=== PATIENT | male | born 1970 | race Two or more races ===

== ENCOUNTER 2020-09-13 18:32 | Emergency (ER) | payer OTHER ==
[~2020-09-13] VITALS: Ht 180.3 cm; Wt 84.8 kg
--- NOTE | 2020-09-13 18:38 | NUR ---
BIBSELF, C/O COUGH, SOB AND CHEST PAIN X2 DAYS, INHALER INEFFECTIVE, TO ER BED 8, PATIENT NOTED TRIPODING, HOOKED TO O2 VIA NC AT 6LPM, IV LINE ESTABLISHED AT RAC 20G. DR EDWARDS AT BEDSIDE
--- NOTE | 2020-09-13 18:40 | NUR ---
RECEIVED VERBAL ORDER OF SOLU-MEDROL 125MG IVP AND EPINEPHRINE 0.3MG SUBCUTANEOUS. CARRIED OUT
[2020-09-13] MEDS ORDERED: methylPREDNISolone SOD SUCC 125 MG/2ML VIAL ONE (18:41)
[2020-09-13] MEDS ORDERED: EPINEPHRINE (1:1000) 1 MG/ML AMPUL ONE (18:43)
[2020-09-13] MEDS ORDERED: Magnesium 1GM/D5W 100ML PREMIX 200 ML IV ONE ×2 (18:43→19:00)
--- NOTE | 2020-09-13 18:51 | NUR ---
BIPIN CRANE AT BEDSIDE FOR EKG
[2020-09-13] MEDS ORDERED: IPRATROPIUM NEB FS 0.5 MG/2.5 ML AMPUL.NEB NEB ONE (19:00)
[2020-09-13] MEDS ORDERED: EPINEPHRINE (1:1000) 1 MG/ML AMPUL SUBCUT ONE (19:00)
[2020-09-13] MEDS ORDERED: IV NS 0.9% 1,000 ML BAG IV ONE (19:00)
[2020-09-13] MEDS ORDERED: ALBUTEROL FS 2.5 MG/3 ML VIAL.NEB CONTNEB ONE (19:00)
[2020-09-13] MEDS ORDERED: methylPREDNISolone SOD SUCC 125 MG/2ML VIAL IV ONE (19:00)
[2020-09-13] MEDS ORDERED: ALBUTEROL FS 2.5 MG/3 ML VIAL.NEB ONE (19:03)
[2020-09-13] MEDS ORDERED: IPRATROPIUM NEB FS 0.5 MG/2.5 ML AMPUL.NEB ONE (19:03)
--- NOTE | 2020-09-13 19:04 | NUR ---
PATIENT STATES ABLE TO BREATH PROPERLY AT THIS TIME.
--- NOTE | 2020-09-13 19:06 | NUR ---
RT AT BEDSIDE FOR BREATHING TX
--- NOTE | 2020-09-13 19:13 | NUR ---
REPORT GIVEN TO PUSHPA FLANAGAN FOR LAN
--- NOTE | 2020-09-13 19:15 | NUR ---
TOOK OVER PT CARE. PT IN BED RECIEVING BREATHING TREATMENT. VSS. RR EVEN AND UNLABORED. PT STATED HE FEELS BETTER.
--- NOTE | 2020-09-13 20:44 | NUR ---
PT IN BED COMFORTABLY. VSS. RR EVEN AND UNLABORED. PER MD CHECK SPO2 IN 30MINS.
[2020-09-13 21:32] VITALS: BP 154/95
--- NOTE | 2020-09-13 21:32 | NUR ---
Patient discharged to home in stable condition. Written and verbal after care instructions given. Patient verbalizes understanding of instruction and rx. Pt ambualted out of E.D. RR even and unlabored. vss.
== END 2020-09-13 21:33 | disposition home or self-care (01) ==
LOC: ER 18:38
DX: J45.901 Unspecified asthma with (acute) exacerbation (principal); R00.0 Tachycardia, unspecified; Z98.890 Other specified postprocedural states
CPT/HCPCS: 71045; 93005; 94644; 96365; 96366; 96372; 96375; 99285; J0171; J2930; J3475; J7030

== ENCOUNTER 2020-11-08 18:50 | Emergency (ER) | payer OTHER ==
[~2020-11-08] VITALS: Ht 175.3 cm; Wt 81.6 kg
[2020-11-08] MEDS ORDERED: methylPREDNISolone SOD SUCC 125 MG/2ML VIAL ONE (18:58)
[2020-11-08] MEDS ORDERED: IPRATROPIUM NEB FS 0.5 MG/2.5 ML AMPUL.NEB NEB ONE ×2 (19:00→19:30)
[2020-11-08] MEDS ORDERED: ALBUTEROL FS 2.5 MG/3 ML VIAL.NEB CONTNEB ONE (19:00)
[2020-11-08] MEDS ORDERED: methylPREDNISolone SOD SUCC 125 MG/2ML VIAL IV ONE (19:00)
--- NOTE | 2020-11-08 19:15 | NUR ---
BIBS FROM HOME TO ER BED 6. AAOX4. IN MOD DISTRESS, TACHYPNEIC AND SHALLOW BREATHING. NOTED WHEEZING. AMBULATORY. CAME IN FOR SOB FOR THE PAST 3 DAYS WORST YESTERDAY. PT REPORTS TAHT THIS MORNIGN HIS INHALER BECECAME INEFFECTIVE. WAS AT THE BEDSIDE FOR EVAL. ORDERS RECEIVED, NOTED AND CARRIED OUT.
--- NOTE | 2020-11-08 19:25 | NUR ---
X RAY AT BED SIDE
[2020-11-08] MEDS ORDERED: ALBUTEROL FS 2.5 MG/3 ML VIAL.NEB NEB ONE (19:30)
--- NOTE | 2020-11-08 20:14 | NUR ---
pt medically stable for d/c. IV removed. Catheter intact and site benign. Pressure and 4x4 applied to site. No bleeding noted.Patient discharged to home in stable condition. Rx and Written and verbal after care instructions given. Patient verbalizes understanding of instruction.
[2020-11-08 20:15] VITALS: BP 142/82
== END 2020-11-08 20:15 | disposition home or self-care (01) ==
LOC: ER 18:50
DX: J45.901 Unspecified asthma with (acute) exacerbation (principal); Z98.890 Other specified postprocedural states
CPT/HCPCS: 71045; 94640 ×2; 96374; 99284; J2930

== ENCOUNTER 2020-11-19 16:47 | Emergency (ER) | payer OTHER ==
[~2020-11-19] VITALS: Ht 175.3 cm; Wt 84.8 kg
--- NOTE | 2020-11-19 16:47 | NUR ---
PT BIB SELF C/O SOB AND WHEEZING SINCE THIS MORNING. PT IS AAOX4, NOT IN RESPIRATORY DISTRESS, HOOKED TO ADOBE LAYER HELPER, KEPT RESTED AND COMFORTABLE. WILL CONTINUE TO MONITOR.
--- NOTE | 2020-11-19 16:57 | NUR ---
SEEN AND EXAMINED BY JÚNIOR MORALES
[2020-11-19] MEDS ORDERED: methylPREDNISolone SOD SUCC 125 MG/2ML VIAL ONE (16:59)
[2020-11-19] MEDS ORDERED: IPRATROPIUM NEB FS 0.5 MG/2.5 ML AMPUL.NEB NEB ONE (17:00)
[2020-11-19] MEDS ORDERED: methylPREDNISolone SOD SUCC 125 MG/2ML VIAL IV ONE (17:00)
[2020-11-19] MEDS ORDERED: ALBUTEROL FS 2.5 MG/3 ML VIAL.NEB ONE ×2 (17:00→18:29)
[2020-11-19] MEDS ORDERED: ALBUTEROL FS 2.5 MG/3 ML VIAL.NEB CONTNEB ONE ×2 (17:00→18:30)
[2020-11-19] MEDS ORDERED: IPRATROPIUM NEB FS 0.5 MG/2.5 ML AMPUL.NEB ONE (17:00)
[2020-11-19] MEDS ORDERED: IV NS 0.9% 1,000 ML BAG IV ONE (17:00)
--- NOTE | 2020-11-19 17:00 | NUR ---
RT AT BEDSIDE FOR BREATHING TX.
[2020-11-19] MEDS ORDERED: Magnesium 1GM/D5W 100ML PREMIX 100 ML IV ONE (17:43)
[2020-11-19] MEDS ORDERED: Magnesium 1GM/D5W 100ML PREMIX 200 ML IV ONE (18:00)
--- NOTE | 2020-11-19 19:04 | NUR ---
IV removed. Catheter intact and site benign. Pressure and 4x4 applied to site. No bleeding noted. Patient discharged to home in stable condition. Written and verbal after care instructions given. Patient verbalizes understanding of instruction.
[2020-11-19 19:05] VITALS: BP 129/71
== END 2020-11-19 19:05 | disposition home or self-care (01) ==
LOC: ER 16:50
DX: J45.901 Unspecified asthma with (acute) exacerbation (principal); Z20.822 Contact with and (suspected) exposure to COVID-19; R00.0 Tachycardia, unspecified
CPT/HCPCS: 71045; 87426; 93005; 94640; 94644; 96361; 96365; 96375; 99285; C9803; J2930; J3475; J7030

== ENCOUNTER 2021-02-05 20:46 | Emergency (ER) | payer OTHER ==
[~2021-02-05] VITALS: Ht 175.3 cm; Wt 84.8 kg
[2021-02-05] MEDS ORDERED: methylPREDNISolone SOD SUCC 125 MG/2ML VIAL ONE (20:53)
[2021-02-05] MEDS ORDERED: Magnesium 1GM/D5W 100ML PREMIX 100 ML IV ONE ×2 (20:53→21:37)
[2021-02-05] MEDS ORDERED: Magnesium 1GM/D5W 100ML PREMIX 200 ML IV ONE (21:00)
[2021-02-05] MEDS ORDERED: methylPREDNISolone SOD SUCC 125 MG/2ML VIAL IV ONE (21:00)
[2021-02-05] MEDS ORDERED: ALBUTEROL FS 2.5 MG/3 ML VIAL.NEB NEB ONE (21:00)
[2021-02-05] MEDS ORDERED: IV NS 0.9% 1,000 ML BAG IV ONE (21:00)
[2021-02-05] MEDS ORDERED: IPRATROPIUM NEB FS 0.5 MG/2.5 ML AMPUL.NEB NEB ONE (21:00)
--- NOTE | 2021-02-05 21:00 | NUR ---
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 NO COUGH NOTED . + DIAPHORETIC,. PT W/ HX OF ASTHMA AND USED HIS INHALER MEDIA RELATIONS DIRECTOR W. NO EFFECT. PT AMBULATORY TO BED 6, WSA PLACED ON A MONITOR AND SUPPLEMENTAL O2 OF 7LPM VIA SYMPLE FACE MASK. O2 INCREASED TO 95-96% . RT WAS CALLED FOR BREATHING TX. WILL CONT TO MONITOR ,
[2021-02-05] MEDS ORDERED: IPRATROPIUM NEB FS 0.5 MG/2.5 ML AMPUL.NEB ONE (21:05)
[2021-02-05] MEDS ORDERED: ALBUTEROL FS 2.5 MG/3 ML VIAL.NEB ONE (21:05)
[2021-02-05] MEDS ORDERED: ALBU8.5H8 INH (23:25)
[2021-02-05] MEDS ORDERED: METH4TAB17 PO (23:25)
--- NOTE | 2021-02-06 00:08 | NUR ---
Patient discharged to home in stable condition. Written and verbal after care instructions given. Patient verbalizes understanding of instruction. IV removed. Catheter intact and site benign. Pressure and 4x4 applied to site. No bleeding noted.
[2021-02-06 00:12] VITALS: BP 144/80
== END 2021-02-06 00:14 | disposition home or self-care (01) ==
LOC: ER 20:47
DX: J45.901 Unspecified asthma with (acute) exacerbation (principal); R09.02 Hypoxemia; Z20.822 Contact with and (suspected) exposure to COVID-19; R00.0 Tachycardia, unspecified; F17.200 Nicotine dependence, unspecified, uncomplicated
CPT/HCPCS: 71045; 87081; 87426; 93005; 94640 ×2; 96365; 96375; 99291; C9803; J2930; J3475; J7030

== ENCOUNTER 2021-02-24 16:49 | Emergency (ER) | payer OTHER ==
[~2021-02-24] VITALS: Ht 175.3 cm; Wt 83.0 kg
[~2021-02-24 16:49] MED LIST: ALBU8.5H8 INH; METH4TAB17 PO
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
--- NOTE | 2021-02-24 17:05 | NUR ---
DR BERRY AT BEDSIDE FOR EVAL.
--- NOTE | 2021-02-24 17:11 | NUR ---
PT TO RADIOLOGY FOR HEAD AND CHEST CT SCAN VIA [facility].
[2021-02-24] MEDS ORDERED: LIDOCAINE 1%-EPI 1:100,000 20 ML VIAL TP ONE (17:30)
[2021-02-24] MEDS ORDERED: HYDROCODONE/APAP 5/325MG TABLET PO ONE (17:30)
[2021-02-24] MEDS ORDERED: HYDROCODONE/APAP 5/325MG TABLET ONE ×2 (17:31)
[2021-02-24] MEDS ORDERED: HYDR-3980 PO (18:44)
--- NOTE | 2021-02-24 18:50 | NUR ---
WOUND DRESSING DONE BY GRID OPERATOR.
--- NOTE | 2021-02-24 18:54 | NUR ---
Patient discharged to home in stable condition. Written and verbal after care instructions given. Patient verbalizes understanding of instruction.
[2021-02-24 18:55] VITALS: BP 138/94
== END 2021-02-24 19:04 | disposition home or self-care (01) ==
LOC: ER 16:59
DX: S01.01XA Laceration without foreign body of scalp, initial encounter (principal); S01.112A Laceration without foreign body of left eyelid and periocular area, initial encounter; S61.212A Laceration without foreign body of right middle finger without damage to nail, initial encounter; S20.219A Contusion of unspecified front wall of thorax, initial encounter; S40.812A Abrasion of left upper arm, initial encounter; S40.811A Abrasion of right upper arm, initial encounter; S80.812A Abrasion, left lower leg, initial encounter; S80.811A Abrasion, right lower leg, initial encounter; S30.811A Abrasion of abdominal wall, initial encounter; S30.810A Abrasion of lower back and pelvis, initial encounter; S20.419A Abrasion of unspecified back wall of thorax, initial encounter; M20.091 Other deformity of right finger(s); R51.9 Headache, unspecified; J45.909 Unspecified asthma, uncomplicated; Z98.890 Other specified postprocedural states; Z79.899 Other long term (current) drug therapy; V19.88XA Pedal cyclist (driver) (passenger) injured in other specified transport accidents, initial encounter; Y93.55 Activity, bike riding; Y92.89 Other specified places as the place of occurrence of the external cause; Y99.8 Other external cause status
CPT/HCPCS: 12002; 12011; 29130; 70450; 71250; 73130; 99285; A6403 ×3

== ENCOUNTER 2021-03-01 13:03 | Emergency (ER) | payer OTHER ==
[~2021-03-01] VITALS: Ht 175.3 cm; Wt 83.5 kg
[~2021-03-01 13:03] MED LIST changes: +HYDR-3980 PO
--- NOTE | 2021-03-01 13:03 | NUR ---
PT BIB SELF C/O SOB STARTED 2 HRS AGO. PT IS AAOX4, NOTED MILD RESPIRATORY DISTRESS, HOOKED TO CROP PULLER, KEPT RESTED AND COMFORTABLE. WILL CONTINUE TO MONITOR.
--- NOTE | 2021-03-01 13:14 | NUR ---
SEEN AND EXAMINED BY .
[2021-03-01] MEDS ORDERED: predniSONE 20 MG TABLET ONE (13:18)
[2021-03-01] MEDS: predniSONE 20 MG TABLET PO ONE (13:20)
[2021-03-01] MEDS ORDERED: ALBUTEROL FS 2.5 MG/3 ML VIAL.NEB ONE (13:29)
[2021-03-01] MEDS ORDERED: IPRATROPIUM NEB FS 0.5 MG/2.5 ML AMPUL.NEB ONE (13:29)
--- NOTE | 2021-03-01 13:30 | NUR ---
RT AT BEDSIDE FOR BREATHING TX.
[2021-03-01] MEDS: IPRATROPIUM NEB FS 0.5 MG/2.5 ML AMPUL.NEB NEB ONE (13:33)
[2021-03-01] MEDS: ALBUTEROL FS 2.5 MG/3 ML VIAL.NEB NEB ONE (13:33)
[2021-03-01] MEDS ORDERED: ALBU18HF2 INH (14:48)
[2021-03-01] MEDS ORDERED: PRED20TA PO (14:48)
--- NOTE | 2021-03-01 14:54 | NUR ---
Patient discharged to home in stable condition. Written and verbal after care instructions given. Patient verbalizes understanding of instruction.
[2021-03-01 14:55] VITALS: BP 131/68
== END 2021-03-01 15:00 | disposition home or self-care (01) ==
LOC: ER 13:04
DX: J45.901 Unspecified asthma with (acute) exacerbation (principal); R00.0 Tachycardia, unspecified; F10.10 Alcohol abuse, uncomplicated; Y90.9 Presence of alcohol in blood, level not specified; Z79.899 Other long term (current) drug therapy
CPT/HCPCS: 71045; 94644; 99285; J7512

== ENCOUNTER 2021-03-13 11:29 | Emergency (ER) | payer OTHER ==
[~2021-03-13] VITALS: Ht 172.7 cm
[~2021-03-13 11:29] MED LIST changes: +ALBU18HF2 INH; +PRED20TA PO
[2021-03-13] MEDS ORDERED: ALBUTEROL FS 2.5 MG/3 ML VIAL.NEB ONE (11:42)
[2021-03-13] MEDS ORDERED: IPRATROPIUM NEB FS 0.5 MG/2.5 ML AMPUL.NEB ONE (11:42)
[2021-03-13] MEDS ORDERED: Magnesium 1GM/D5W 100ML PREMIX 100 ML IV ONE (11:47)
[2021-03-13] MEDS ORDERED: methylPREDNISolone SOD SUCC 125 MG/2ML VIAL ONE (11:47)
--- NOTE | 2021-03-13 11:54 | NUR ---
The patient is bibs for c/o SOB/Asthma. The patient is Tachypneic/Retracting/grunting/Hunched over/one word sentences. Patient denies pain. The patient is attached on monitor. Will continue to monitor the patient.
[2021-03-13] MEDS ORDERED: ALBU18HF2 IH (11:57)
[2021-03-13] MEDS ORDERED: FLUT1BLS13 INH (11:57)
[2021-03-13] MEDS ORDERED: ALBU0.633 NEB (11:57)
[2021-03-13] MEDS ORDERED: ALBUTEROL FS 2.5 MG/3 ML VIAL.NEB NEB ONE (12:00)
[2021-03-13] MEDS ORDERED: Magnesium 1GM/D5W 100ML PREMIX 200 ML IV ONE (12:00)
[2021-03-13] MEDS ORDERED: IPRATROPIUM NEB FS 0.5 MG/2.5 ML AMPUL.NEB NEB ONE (12:00)
[2021-03-13] MEDS ORDERED: methylPREDNISolone SOD SUCC 125 MG/2ML VIAL IV ONE (12:00)
[2021-03-13 12:07] LABS: BASOPHILS # (AUTO) 0.1 /CMM (0.0-0.2); BASOPHILS % (AUTO) 0.6 % (0.0-2.0); EOSINOPHILS % (AUTO) 5.8 % (0.0-6.0); HEMATOCRIT 46 % (39-51); HEMOGLOBIN 15.5 g/dL (13.5-17.5); LYMPHOCYTES # (AUTO) 2.5 /CMM (0.8-4.8); LYMPHOCYTES % (AUTO) 27.7 % (20.0-44.0); MEAN CORPUSCULAR HGB CONC 33 g/dl (31.0-36.0); MEAN CORPUSCULAR VOLUME 93 fL (80-96); MONOCYTES # (AUTO) 1.1 /CMM (0.1-1.30); NEUTROPHILS # (AUTO) 4.9 /CMM (1.8-8.9); NEUTROPHILS % (AUTO) 53.9 % (43.0-81.0); PLATELET COUNT (AUTO) 484 /CMM (150-450); RED BLOOD CELL COUNT(AUTO) 4.98 MIL/uL (4.5-6.0)
--- NOTE | 2021-03-13 12:09 | NUR ---
covid swab done and sent to the lab
--- NOTE | 2021-03-13 12:10 | NUR ---
covid swab done and sent to the lab
[2021-03-13 13:03] LABS: CALCIUM, SERUM 9.2 mg/dL (8.5-10.1); CARBON DIOXIDE 26 mmol/L (21-32); CHLORIDE 103 mmol/L (98-107); CREATININE 0.8 mg/dL (0.6-1.3); GLUCOSE 106 mg/dL (74-106); POTASSIUM 4.5 mmol/L (3.5-5.1); SODIUM SERUM 140 mmol/L (136-145); UREA NITROGEN, BLOOD 19 mg/dL (7-18)
[2021-03-13 13:16] LABS: B-TYPE NATRIURETIC PEPTIDE 16 PG/ML (0-125)
[2021-03-13] MEDS ORDERED: PRED20TA PO (13:28)
[2021-03-13] MEDS ORDERED: ALBU18HF2 INH (13:28)
--- NOTE | 2021-03-13 13:41 | NUR ---
LAB CALLED PT COVID RESULT NEGATIVE (-)
--- NOTE | 2021-03-13 13:52 | NUR ---
The patient is alert and oriented x4. Denies pain. In room air and denies SOB. Respiration regular and unlabored. Patient discharged to home in stable condition. Written and verbal after care instructions given. Patient verbalizes understanding of instruction.
[2021-03-13 13:53] VITALS: BP 136/87
== END 2021-03-13 13:53 | disposition home or self-care (01) ==
LOC: ER 11:29
DX: J45.901 Unspecified asthma with (acute) exacerbation (principal); R00.0 Tachycardia, unspecified; Z20.822 Contact with and (suspected) exposure to COVID-19; F17.200 Nicotine dependence, unspecified, uncomplicated
CPT/HCPCS: 36415; 71045; 80048; 83880; 84484; 85025; 87081; 87426; 93005; 94644; 96365; 96375; 99285; C9803; J2930; J3475

== ENCOUNTER 2021-04-08 08:17 | Emergency (ER) | payer OTHER ==
[~2021-04-08] VITALS: Ht 175.3 cm; Wt 80.7 kg
[~2021-04-08 08:17] MED LIST changes: +ALBU0.633 NEB; +ALBU18HF2 IH; -ALBU8.5H8 INH; +FLUT1BLS13 INH; -HYDR-3980 PO; -METH4TAB17 PO
--- NOTE | 2021-04-08 08:30 | NUR ---
The patient bibs for c/o dull chest pain x 2 weeks, s/p covid vaccine 03/30/21. Rates pain 02/10. Per patient the patient radiates to his back. In room air and denies SOB. Respiration regular and unlabored. Attached to the monitor.
[2021-04-08 08:47] LABS: BASOPHILS % (AUTO) 0.3 % (0.0-2.0); EOSINOPHILS % (AUTO) 1.3 % (0.0-6.0); HEMATOCRIT 40 % (39-51); HEMOGLOBIN 13.7 g/dL (13.5-17.5); LYMPHOCYTES % (AUTO) 13.5 % (20.0-44.0); MEAN CORPUSCULAR HGB CONC 34 g/dl (31.0-36.0); MEAN CORPUSCULAR VOLUME 91 fL (80-96); MONOCYTES # (AUTO) 2.4 /CMM (0.1-1.30); MONOCYTES % (AUTO) 15.9 % (2.0-12.0); NEUTROPHILS # (AUTO) 10.4 /CMM (1.8-8.9); PLATELET COUNT (AUTO) 298 /CMM (150-450); RED BLOOD CELL COUNT(AUTO) 4.44 MIL/uL (4.5-6.0); WHITE BLOOD COUNT (AUTO) 15.1 K/uL (4.3-11.0)
[2021-04-08] MEDS ORDERED: IV NS 0.9% 500 ML BAG IV ONE (09:00)
[2021-04-08 09:14] LABS: CALCIUM, SERUM 8.7 mg/dL (8.5-10.1); CARBON DIOXIDE 24 mmol/L (21-32); CHLORIDE 98 mmol/L (98-107); GLUCOSE 112 mg/dL (74-106); POTASSIUM 3.3 mmol/L (3.5-5.1); SODIUM SERUM 133 mmol/L (136-145); UREA NITROGEN, BLOOD 7 mg/dL (7-18)
[2021-04-08 09:25] LABS: ALANINE AMINOTRANSFERASE 28 U/L (12-78); ALBUMIN 3.6 g/dL (3.4-5.0); ALKALINE PHOSPHATASE 80 U/L (46-116); ASPARTATE AMINOTRANSFERASE 19 U/L (15-37); BILIRUBIN,DIRECT 0.2 mg/dL (0.0-0.2); BILIRUBIN,TOTAL 1.1 mg/dL (0.2-1.0); NT-PRO BNP 101 pg/mL (0-125)
[2021-04-08] MEDS ORDERED: IOHEXOL-350 100 ML VIAL IV ONE (09:25)
[2021-04-08] MEDS ORDERED: IV NS 0.9% 250 ML IV ONE (09:25)
[2021-04-08 10:05] LABS: LYMPHOCYTES % (MANUAL) 15 % (16-48); MONOCYTES % (MANUAL) 17 % (0-11.0); MYELOCYTES % 1 % (0-0); NEUTROPHILS % (MANUAL) 67 (42-76)
[2021-04-08] MEDS ORDERED: IBUP-1957 PO (11:00)
--- NOTE | 2021-04-08 11:19 | NUR ---
The patient alert and oriented x4. Patient discharged to home in stable condition. Written and verbal after care instructions given. Patient verbalizes understanding of instruction.
[2021-04-08 11:20] VITALS: BP 121/75
== END 2021-04-08 11:21 | disposition home or self-care (01) ==
LOC: ER 08:22
DX: R07.89 Other chest pain (principal); J45.909 Unspecified asthma, uncomplicated; F12.90 Cannabis use, unspecified, uncomplicated; Z98.890 Other specified postprocedural states; Z79.899 Other long term (current) drug therapy
CPT/HCPCS: 36415; 71045; 71275; 80048; 80076; 83880; 84484; 85007; 85025; 93005 ×2; 96360; 99285; J7040; J7050; Q9967

== ENCOUNTER 2021-04-22 20:44 | Emergency (ER) | payer OTHER ==
[~2021-04-22] VITALS: Ht 175.3 cm; Wt 80.7 kg
[~2021-04-22 20:44] MED LIST changes: +IBUP-1957 PO
--- NOTE | 2021-04-22 20:55 | NUR ---
SOB X ALL DAY TODAY, HAS PROAIR INHALER NO RELIEF 99% ON RA
[2021-04-22] MEDS ORDERED: IPRATROPIUM NEB FS 0.5 MG/2.5 ML AMPUL.NEB NEB ONE (21:00)
[2021-04-22] MEDS ORDERED: predniSONE 20 MG TABLET PO ONE (21:00)
[2021-04-22] MEDS ORDERED: ALBUTEROL FS 2.5 MG/3 ML VIAL.NEB NEB ONE (21:00)
[2021-04-22] MEDS ORDERED: predniSONE 20 MG TABLET ONE (21:02)
[2021-04-22] MEDS ORDERED: IPRATROPIUM NEB FS 0.5 MG/2.5 ML AMPUL.NEB ONE (21:25)
[2021-04-22] MEDS ORDERED: ALBUTEROL FS 2.5 MG/3 ML VIAL.NEB ONE (21:25)
--- NOTE | 2021-04-22 21:25 | NUR ---
RT AT BEDSIDE FOR BREATHIGN TX
[2021-04-22] MEDS ORDERED: PRED20TA PO (21:47)
[2021-04-22] MEDS ORDERED: ALBU8.5H8 INH (21:47)
[2021-04-22 22:23] VITALS: BP 134/86
--- NOTE | 2021-04-22 22:23 | NUR ---
Patient discharged to home in stable condition. Written and verbal after care instructions given. Patient verbalizes understanding of instruction.
== END 2021-04-22 22:30 | disposition home or self-care (01) ==
LOC: ER 20:45
DX: J45.901 Unspecified asthma with (acute) exacerbation (principal); F17.210 Nicotine dependence, cigarettes, uncomplicated; Z98.890 Other specified postprocedural states; Z79.899 Other long term (current) drug therapy
CPT/HCPCS: 93005; 94640 ×2; 99285; 99406; J7512

== ENCOUNTER 2021-07-16 17:34 | Emergency (ER) | payer OTHER ==
[~2021-07-16] VITALS: Ht 175.3 cm; Wt 80.7 kg
[~2021-07-16 17:34] MED LIST changes: +ALBU8.5H8 INH
[2021-07-16] MEDS ORDERED: IPRATROPIUM NEB FS 0.5 MG/2.5 ML AMPUL.NEB ONE (18:08)
[2021-07-16] MEDS ORDERED: ALBUTEROL FS 2.5 MG/3 ML VIAL.NEB ONE (18:08)
--- NOTE | 2021-07-16 18:10 | NUR ---
Patient came in to the er c/o asthma exacerbation. On room air. Connected to the monitor and pulse ox. Kept comfortable, will continue to monitor accordingly.
[2021-07-16] MEDS ORDERED: Magnesium 1GM/D5W 100ML PREMIX 200 ML IV ONE ×2 (18:27→18:30)
[2021-07-16] MEDS ORDERED: methylPREDNISolone SOD SUCC 125 MG/2ML VIAL ONE (18:29)
[2021-07-16] MEDS ORDERED: IPRATROPIUM NEB FS 0.5 MG/2.5 ML AMPUL.NEB NEB ONE (18:30)
[2021-07-16] MEDS ORDERED: methylPREDNISolone SOD SUCC 125 MG/2ML VIAL IV ONE (18:30)
[2021-07-16] MEDS ORDERED: ALBUTEROL FS 2.5 MG/3 ML VIAL.NEB CONTNEB ONE (18:30)
[2021-07-16] MEDS ORDERED: IV NS 0.9% 1,000 ML IV ONE (18:30)
--- NOTE | 2021-07-16 19:25 | NUR ---
report given to linette allen for sean.
[2021-07-16] MEDS ORDERED: ALBU8.5H8 INH (20:41)
[2021-07-16] MEDS ORDERED: PRED50TA PO (20:42)
[2021-07-16] MEDS ORDERED: BECL10.6 IH (20:42)
[2021-07-16 20:55] VITALS: BP 138/87
--- NOTE | 2021-07-16 20:55 | NUR ---
Patient discharged to home in stable condition. Written and verbal after care instructions given. Patient verbalizes understanding of instruction.IV removed. Catheter intact and site benign. Pressure and 4x4 applied to site. No bleeding noted. Pt ambulatory with a steady gait
== END 2021-07-16 20:56 | disposition home or self-care (01) ==
LOC: ER 17:40
DX: J45.901 Unspecified asthma with (acute) exacerbation (principal); Z98.890 Other specified postprocedural states; Z79.899 Other long term (current) drug therapy
CPT/HCPCS: 71045; 93005; 94644; 96365; 96375; 99285; J2930; J3475; J7030

== ENCOUNTER 2021-08-19 20:09 | Emergency (ER) | payer OTHER ==
[~2021-08-19] VITALS: Ht 175.3 cm; Wt 84.8 kg
[~2021-08-19 20:09] MED LIST changes: -ALBU0.633 NEB; -ALBU18HF2 INH; +BECL10.6 IH; -FLUT1BLS13 INH; -IBUP-1957 PO; -PRED20TA PO; +PRED50TA PO
--- NOTE | 2021-08-19 20:30 | NUR ---
PATIENT BIBELFS C/O ASTHMA ATTACK UNRELIEVED BY INHALER SINCE 5PM. PATIENT IS A/OX 4, RR EVEN AND UNLABORED NO SOB NOTED. PATIENT CONNECTED MONITOR.
--- NOTE | 2021-08-19 20:31 | NUR ---
RT AT BEDSIDE
[2021-08-19] MEDS ORDERED: IPRATROPIUM NEB FS 0.5 MG/2.5 ML AMPUL.NEB ONE (20:37)
[2021-08-19] MEDS ORDERED: ALBUTEROL FS 2.5 MG/3 ML VIAL.NEB ONE (20:37)
[2021-08-19] MEDS ORDERED: methylPREDNISolone SOD SUCC 125 MG/2ML VIAL ONE (20:49)
[2021-08-19] MEDS ORDERED: ALBU6.7H9 INH (20:53)
[2021-08-19] MEDS ORDERED: BECL10.6 IH (20:53)
[2021-08-19] MEDS ORDERED: PRED50TA PO (20:54)
[2021-08-19] MEDS ORDERED: ALBUTEROL FS 2.5 MG/3 ML VIAL.NEB CONTNEB ONE (21:00)
[2021-08-19] MEDS ORDERED: IPRATROPIUM NEB FS 0.5 MG/2.5 ML AMPUL.NEB NEB ONE ×2 (21:00)
[2021-08-19] MEDS ORDERED: methylPREDNISolone SOD SUCC 125 MG/2ML VIAL IV ONE (21:00)
[2021-08-19] MEDS ORDERED: ALBUTEROL FS 2.5 MG/3 ML VIAL.NEB NEB ONE (21:00)
[2021-08-19] MEDS ORDERED: IV NS 0.9% 1,000 ML IV ONE (21:00)
[2021-08-19 21:23] VITALS: BP 130/88
--- NOTE | 2021-08-19 21:23 | NUR ---
Patient discharged to home in stable condition. Written and verbal after care instructions given. Patient verbalizes understanding of instruction. RX GIVEN
== END 2021-08-19 21:23 | disposition home or self-care (01) ==
LOC: ER 20:19
DX: J45.901 Unspecified asthma with (acute) exacerbation (principal); Z98.890 Other specified postprocedural states; Z79.899 Other long term (current) drug therapy
CPT/HCPCS: 93005; 94640; 96361; 96374; 99283; J2930; J7030

== ENCOUNTER 2023-08-11 20:50 | Emergency (ER) | payer OTHER ==
[~2023-08-11] VITALS: Ht 175.3 cm; Wt 83.9 kg
[~2023-08-11 20:50] MED LIST changes: +ALBU6.7H9 INH
[2023-08-11] MEDS ORDERED: methylPREDNISolone SOD SUCC 125 MG/2ML VIAL ONE (21:13)
[2023-08-11] MEDS ORDERED: ALBUTEROL FS 2.5 MG/3 ML VIAL.NEB ONE ×3 (21:15→23:44)
[2023-08-11] MEDS ORDERED: IPRATROPIUM NEB FS 0.5 MG/2.5 ML AMPUL.NEB ONE ×3 (21:15→23:44)
[2023-08-11 21:18] VITALS: O2SAT 97
[2023-08-11] MEDS ORDERED: IPRATROPIUM NEB FS 0.5 MG/2.5 ML AMPUL.NEB NEB ONE ×3 (21:30→23:00)
[2023-08-11] MEDS ORDERED: ALBUTEROL FS 2.5 MG/3 ML VIAL.NEB NEB ONE ×3 (21:30→23:00)
[2023-08-11] MEDS ORDERED: methylPREDNISolone SOD SUCC 125 MG/2ML VIAL IV ONE (21:30)
[2023-08-11 21:33] VITALS: O2SAT 99
[2023-08-11 21:45] VITALS: O2SAT 99
[2023-08-11 22:00] VITALS: O2SAT 98
[2023-08-11 23:46] VITALS: O2SAT 96
[2023-08-12 00:01] VITALS: O2SAT 98
[2023-08-12] MEDS ORDERED: ALBU18HF2 INH (00:25)
[2023-08-12] MEDS ORDERED: PRED20TA PO (00:26)
[2023-08-12 00:38] VITALS: BP 145/80; TEMP 98.1; O2SAT 96
== END 2023-08-12 00:39 | disposition home or self-care (01) ==
LOC: ER 20:53
DX: J45.909 Unspecified asthma, uncomplicated (principal); Z79.899 Other long term (current) drug therapy
CPT/HCPCS: 99285; 96374; 71045; 94799; 94640 ×2; J2930

== ENCOUNTER 2023-09-28 20:54 | Emergency (ER) | payer OTHER ==
[~2023-09-28] VITALS: Ht 175.3 cm; Wt 78.0 kg
[~2023-09-28 20:54] MED LIST changes: +ALBU18HF2 INH; +PRED20TA PO
[2023-09-28] MEDS ORDERED: IPRATROPIUM NEB FS 0.5 MG/2.5 ML AMPUL.NEB NEB STA (21:03)
[2023-09-28] MEDS ORDERED: methylPREDNISolone SOD SUCC 125 MG/2ML VIAL ONE (21:07)
[2023-09-28] MEDS ORDERED: Magnesium 1GM/D5W 100ML PREMIX 100 ML IV ONE (21:08)
[2023-09-28 21:13] VITALS: O2SAT 98
[2023-09-28] MEDS ORDERED: IPRATROPIUM NEB FS 0.5 MG/2.5 ML AMPUL.NEB ONE (21:14)
[2023-09-28] MEDS ORDERED: ALBUTEROL FS 2.5 MG/3 ML VIAL.NEB ONE (21:14)
[2023-09-28 21:20] LABS: BASOPHILS # (AUTO) 0.1 K/uL (0.0-0.2); BASOPHILS % (AUTO) 1.2 % (0.0-2.0); EOSINOPHILS # (AUTO) 0.4 K/uL (0.0-0.7); HEMATOCRIT 47 % (39-51); HEMOGLOBIN 15.4 g/dL (13.5-17.5); LYMPHOCYTES % (AUTO) 19.5 % (20.0-44.0); MEAN CORPUSCULAR HEMOGLOBIN 30 PG (26.0-33.0); MEAN CORPUSCULAR HGB CONC 33 g/dl (31.0-36.0); MEAN CORPUSCULAR VOLUME 93 fL (80-96); MONOCYTES % (AUTO) 10.4 % (2.0-12.0); NEUTROPHILS # (AUTO) 6.5 K/uL (1.8-8.9); NEUTROPHILS % (AUTO) 64.9 % (43.0-81.0); PLATELET COUNT (AUTO) 293 K/uL (150-450); RED BLOOD CELL COUNT(AUTO) 5.09 MIL/uL (4.5-6.0); RED CELL DISTRIBUTION WIDTH 13.4 % (11.5-15.0)
[2023-09-28] MEDS ORDERED: methylPREDNISolone SOD SUCC 125 MG/2ML VIAL IV ONE (21:30)
[2023-09-28] MEDS ORDERED: ALBUTEROL FS 2.5 MG/3 ML VIAL.NEB CONTNEB ONE (21:30)
[2023-09-28] MEDS ORDERED: Magnesium 1GM/D5W 100ML PREMIX 200 ML IV ONE (21:30)
[2023-09-28 21:32] LABS: CARBON DIOXIDE 28 mmol/L (21-32); CHLORIDE 104 mmol/L (98-107); CREATININE 1.2 mg/dL (0.6-1.3); GLUCOSE 137 mg/dL (74-106); POTASSIUM 3.8 mmol/L (3.5-5.1); SODIUM SERUM 136 mmol/L (136-145); UREA NITROGEN, BLOOD 15 mg/dL (7-18)
[2023-09-28] MEDS ORDERED: ALBU18HF2 INH (22:12)
[2023-09-28] MEDS ORDERED: BECL10.6 IH (22:12)
[2023-09-28] MEDS ORDERED: PRED20TA PO (22:12)
[2023-09-28 22:13] VITALS: O2SAT 100
[2023-09-28 23:05] VITALS: BP 126/75; TEMP 98.2; O2SAT 100
== END 2023-09-28 23:05 | disposition home or self-care (01) ==
LOC: ER 20:57
DX: J45.901 Unspecified asthma with (acute) exacerbation (principal); Z79.51 Long term (current) use of inhaled steroids; Z79.899 Other long term (current) drug therapy
CPT/HCPCS: 99285; 96365; 71045; 96375; 93005; 85025; 80048; 36415; 84484; 94644; J2930; J3475

== ENCOUNTER 2024-02-19 08:40 | Emergency (ER) | payer OTHER ==
[~2024-02-19] VITALS: Ht 175.3 cm; Wt 78.9 kg
[2024-02-19 09:29] LABS: BASOPHILS % (AUTO) 0.2 % (0.0-2.0); EOSINOPHILS # (AUTO) 0.1 K/uL (0.0-0.7); EOSINOPHILS % (AUTO) 0.8 % (0.0-6.0); HEMATOCRIT 39 % (39-51); HEMOGLOBIN 13.1 g/dL (13.5-17.5); LYMPHOCYTES # (AUTO) 1.1 K/uL (0.8-4.8); LYMPHOCYTES % (AUTO) 7.7 % (20.0-44.0); MEAN CORPUSCULAR HEMOGLOBIN 30 PG (26.0-33.0); MEAN CORPUSCULAR HGB CONC 34 g/dl (31.0-36.0); MEAN CORPUSCULAR VOLUME 89 fL (80-96); MONOCYTES # (AUTO) 1.6 K/uL (0.1-1.30); NEUTROPHILS # (AUTO) 11.8 K/uL (1.8-8.9); NEUTROPHILS % (AUTO) 80.3 % (43.0-81.0); PLATELET COUNT (AUTO) 562 K/uL (150-450); RED BLOOD CELL COUNT(AUTO) 4.34 MIL/uL (4.5-6.0); RED CELL DISTRIBUTION WIDTH 12.9 % (11.5-15.0); WHITE BLOOD COUNT (AUTO) 14.7 K/uL (4.3-11.0)
[2024-02-19 09:39] LABS: CALCIUM, SERUM 8.7 mg/dL (8.5-10.1); CARBON DIOXIDE 31 mmol/L (21-32); CHLORIDE 102 mmol/L (98-107); CREATININE 0.9 mg/dL (0.6-1.3); GLUCOSE 84 mg/dL (74-106); POTASSIUM 3.9 mmol/L (3.5-5.1); SODIUM SERUM 137 mmol/L (136-145); UREA NITROGEN, BLOOD 12 mg/dL (7-18)
[2024-02-19 09:45] LABS: ALANINE AMINOTRANSFERASE 24 U/L (12-78); ALBUMIN 2.8 g/dL (3.4-5.0); ALKALINE PHOSPHATASE 86 U/L (46-116); ASPARTATE AMINOTRANSFERASE 13 U/L (15-37); BILIRUBIN,DIRECT 0.1 mg/dL (0.0-0.2); BILIRUBIN,TOTAL 0.4 mg/dL (0.2-1.0); TOTAL PROTEIN, SERUM 7.2 g/dL (6.4-8.2)
[2024-02-19 09:57] LABS: APPEARANCE,URINE Clear (CLEAR); BILIRUBIN,URINE Negative (NEGATIVE); BLOOD, URINE Negative Ery/uL (NEGATIVE); COLOR,URINE YELLOW (YELLOW); KETONES,URINE Negative (NEGATIVE); LEUKOCYTE ESTERASE ,URINE Negative (NEGATIVE); NITRITE, URINE Negative (NEGATIVE); PH,URINE 8.5 (5.0-8.0); PROTEIN,URINE Negative (NEGATIVE); UGLUCOSE Negative (NEGATIVE); UROBILINOGEN,URINE 0.2 EU/dL (0.2)
[2024-02-19] MEDS ORDERED: GUAI-671 PO (11:35)
[2024-02-19] MEDS ORDERED: LOPE2CAP40 PO (11:35)
[2024-02-19 11:44] VITALS: BP 138/81; TEMP 99; O2SAT 99
== END 2024-02-19 11:45 | disposition home or self-care (01) ==
LOC: ER 08:42
DX: J20.9 Acute bronchitis, unspecified (principal); R07.89 Other chest pain; R19.7 Diarrhea, unspecified; J45.909 Unspecified asthma, uncomplicated; Z20.822 Contact with and (suspected) exposure to COVID-19
CPT/HCPCS: 36415; 71045-TC; 80048-TC; 80076-TC; 84484-TC; 85025-TC

== ENCOUNTER 2025-03-04 10:23 | Emergency (ER) | payer OTHER ==
[~2025-03-04] VITALS: Ht 175.3 cm; Wt 78.0 kg
[~2025-03-04 10:23] MED LIST changes: +GUAI-671 PO; +LOPE2CAP40 PO
[2025-03-04] MEDS ORDERED: predniSONE 20 MG TABLET ONE (10:38)
[2025-03-04] MEDS ORDERED: IPRATROPIUM NEB FS 0.5 MG/2.5 ML AMPUL.NEB ONE (10:43)
[2025-03-04] MEDS ORDERED: ALBUTEROL FS 2.5 MG/3 ML VIAL.NEB ONE (10:43)
[2025-03-04] MEDS: predniSONE 20 MG TABLET PO ONE (10:50)
[2025-03-04 10:54] VITALS: O2SAT 98
[2025-03-04] MEDS: ALBUTEROL FS 2.5 MG/3 ML VIAL.NEB CONTNEB ONE (10:54)
[2025-03-04] MEDS: IPRATROPIUM NEB FS 0.5 MG/2.5 ML AMPUL.NEB NEB ONE (10:54)
[2025-03-04 11:09] VITALS: O2SAT 100
[2025-03-04 11:10] VITALS: O2SAT 100
[2025-03-04 11:25] VITALS: O2SAT 100
[2025-03-04] MEDS ORDERED: ALBU18HF2 INH (11:53)
[2025-03-04] MEDS ORDERED: PRED50TA PO (11:53)
[2025-03-04 11:55] VITALS: BP 119/83; TEMP 97.7; O2SAT 100
== END 2025-03-04 12:01 | disposition home or self-care (01) ==
LOC: ER 10:25
DX: J45.901 Unspecified asthma with (acute) exacerbation (principal); F12.90 Cannabis use, unspecified, uncomplicated; Z79.51 Long term (current) use of inhaled steroids; Z79.52 Long term (current) use of systemic steroids; Z79.899 Other long term (current) drug therapy
CPT/HCPCS: 99285; 71045; 94640 ×2; J7512